=== PATIENT | male | born 1950 | race American Indian/Alaskan Native ===

== ENCOUNTER 2021-12-14 08:44 | Outpatient (CLI) | payer MEDICARE ==
--- NOTE | 2021-12-14 10:45 | Cat Scan Report ---
CT ABDOMEN AND PELVIS WITHOUT CONTRAST INDICATION / CLINICAL INFORMATION: MALIGNANT NEOPLASM OF PROSTATE. TECHNIQUE: Axial CT images were obtained through the abdomen and pelvis without IV contrast. All CT scans at this location are performed using CT dose reduction for ALARA by means of automated exposure control. COMPARISON: None available. FINDINGS: LOWER CHEST: No acute abnormality LIVER: No significant abnormality. GALLBLADDER: No significant abnormality. BILE DUCTS: No significant abnormality. PANCREAS: No significant abnormality. SPLEEN: No significant abnormality. ADRENALS: No significant abnormality. RIGHT KIDNEY / URETER: There is a small nonobstructing stone in the lower pole LEFT KIDNEY / URETER: No significant abnormality. STOMACH / SMALL BOWEL: No significant abnormality. COLON: No significant abnormality. APPENDIX: No significant abnormality. PERITONEUM: No free fluid. No free air. No fluid collection. LYMPH NODES: No significant adenopathy. AORTA / ARTERIES: Mild atherosclerotic calcification without acute abnormality. IVC / VEINS: No significant abnormality. URINARY BLADDER: No significant abnormality. REPRODUCTIVE ORGANS: No significant abnormality. ADDITIONAL FINDINGS: None. SKELETAL SYSTEM: No acute abnormality. There are healed/healing left lower rib fractures. Degenerativ e changes are noted in the spine. IMPRESSION: 1. No acute abnormality. No metastatic disease is identified. Signer Name: Dixon Mtz MD Signed: 12/14/2021 10:40 AM Workstation Name: [id number]
--- NOTE | 2021-12-14 15:40 | Nuclear Medicine Report ---
NUCLEAR MEDICINE BONE SCAN, WHOLE BODY INDICATION / CLINICAL INFORMATION: C61 PROSTATE CA. TECHNIQUE: 26 mCi of Tc-99m MDP were injected IV. Images were obtained of the whole body. COMPARISON: CT scan dated 12/14/2021 FINDINGS: BONES: There is focal uptake noted in the expected location of the mid clavicle possibly left first r ib which is nonspecific. There is uptake noted in the posterior aspect of the left ninth and 10th ribs. These correspond to si claudia of prior fractures. JOINTS: There is prominent uptake noted in the shoulders bilaterally likely related to degenerative c hange. There is uptake noted in the right kidney which is also likely degenerative SOFT TISSUES: No significant abnormality. KIDNEYS: No significant abnormality. ADDITIONAL FINDINGS: None. IMPRESSION: 1. Focal uptake in the mid left clavicle or left first rib is nonspecific. Conventional radiographs r ecommended to further evaluate. 2. Uptake in the shoulders and right knee is likely degenerative. 3. There is uptake in the posterior left ninth and 10th ribs corresponding to healing or healed fract ures. Signer Name: Dxion Mtz MD Signed: 12/14/2021 3:36 PM Workstation Name: [id number]
== END 2021-12-14 08:45 | disposition home or self-care (01) ==
LOC: NM 08:44
PROVIDERS: ATTEND Urology
DX: C61 Malignant neoplasm of prostate (principal); N20.0 Calculus of kidney; I70.0 Atherosclerosis of aorta; M47.816 Spondylosis without myelopathy or radiculopathy, lumbar region
CPT/HCPCS: 74176; 78306; A9503

== ENCOUNTER 2022-02-19 06:46 | Observation (INO) | payer MEDICARE ==
[2022-02-06 14:05] LABS: Hematocrit 37.8 % (35.5-45.6); Hemoglobin 12.7 gm/dl (11.8-15.2); Mean Corpuscular HGB Conc 34 % (32-34); Mean Corpuscular Volume 95 fl (84-94); Platelet Count 196 K/mm3 (140-440); Red Blood Count 3.98 M/mm3 (3.65-5.03); Red Cell Distribution Width 13.7 % (13.2-15.2)
[2022-02-06 14:27] LABS: Alanine Aminotransferase 15 units/L (7-56); Blood Urea Nitrogen 17 mg/dL (9-20); Calcium 9.1 mg/dL (8.4-10.2); Hemolysis Index 10
[2022-02-06 14:30] LABS: BUN/Creatinine Ratio 34
--- NOTE | 2022-02-06 14:33 | Anesthesia Consultation ---
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
[~2022-02-19 06:46] MED LIST: CELECOXIB 200 MG CAP PO NR; GABAPENTIN 300 MG CAP PO NR; LACTATED RINGERS 1,000 ML IV SCH; MIDAZOLAM 2 MG/2 ML INJ IV NR
[2022-02-19] MEDS ORDERED: fentaNYL 100 MCG/2 ML INJ IV SCH (07:00)
[2022-02-19] MEDS ORDERED: ACETAMINOPHEN 325 MG TAB PO SCH (07:00)
[2022-02-19] MEDS ORDERED: MAGNESIUM OXIDE 400 MG TAB PO SCH (07:00)
[2022-02-19] MEDS ORDERED: ceFAZolin/Water 2 GM/20 ML 2 GM/20 ML SYRINGE IV ONE (08:11)
[2022-02-19] MEDS ORDERED: dexAMETHasone 4 MG/ML VIAL ONE (08:19)
[2022-02-19] MEDS ORDERED: cloNIDine/PF 1,000 MCG/10 ML VIAL EP ONE (08:19)
[2022-02-19] MEDS ORDERED: BUPIVACAINE-EPINEPHRINE/PF 0.25%-1:200,000 (30 ML) VIAL INFILTRATI ONE (08:19)
[2022-02-19] MEDS ORDERED: LIDOCAINE (1%) 10 MG/1 ML VIAL 20 ML MDV ONE (08:19)
--- NOTE | 2022-02-19 09:08 | Anesthesia Day of Surgery ---
Anesthesia Day of Surgery - Day of Surgery Patient Examined: Yes Patient H&P Reviewed: Yes Patient is NPO: Yes
[2022-02-19] MEDS ORDERED: ceFAZolin/Water 2 GM/20 ML 2 GM/20 ML SYRINGE IV NR (09:14)
[2022-02-19] MEDS ORDERED: HYDROmorphone 1 MG/1 ML INJ IV PRN (09:23)
[2022-02-19] MEDS ORDERED: fentaNYL 100 MCG/2 ML INJ ONE (09:31)
[2022-02-19] MEDS ORDERED: propofoL 200 MG/20 ML VIAL IV ONE (09:31)
[2022-02-19] MEDS ORDERED: ROCURONIUM 50 MG/5 ML INJ IV ONE (09:31)
[2022-02-19] MEDS ORDERED: KETAMINE/STERILE WATER 50 MG/ML SYRINGE ONE (09:31)
[2022-02-19] MEDS ORDERED: LIDOCAINE MPF (2%) 20 MG/1 ML VIAL 5 ML ONE (09:31)
[2022-02-19] MEDS ORDERED: SODIUM CHLORIDE P/F VIAL 10 ML 10 ML ONE ×2 (09:32→11:37)
[2022-02-19] MEDS ORDERED: THROMBIN (RECOMBINANT) 5,000 UNIT VIAL TP ONE ×2 (10:32→10:54)
[2022-02-19] MEDS ORDERED: CALCIUM CHLORIDE 1,000 MG/10 ML SYRINGE IV ONE ×2 (10:32→10:53)
[2022-02-19] MEDS ORDERED: SODIUM CHLORIDE 0.9% IRRIG SOLN 2000 ML IR ONE (10:52)
[2022-02-19] MEDS ORDERED: ANTICOAGULANT SOD CITRATE SOLUTION MC ONE (10:52)
[2022-02-19] MEDS ORDERED: WATER FOR IRRIG STERILE 1,500 ML BOTTLE IR ONE (10:53)
[2022-02-19] MEDS ORDERED: PHENYLEPHRINE/NS 1,000 MCG/10 ML SYRINGE (OR USE) IV ONE (11:37)
[2022-02-19] MEDS ORDERED: KETOROLAC 30 MG/1 ML INJ ONE (11:37)
[2022-02-19] MEDS ORDERED: ONDANSETRON 4 MG/2 ML INJ ONE (11:37)
[2022-02-19] MEDS ORDERED: dexAMETHasone 20 MG/5 ML VIAL ONE (11:38)
[2022-02-19] MEDS ORDERED: ePHEDrine SULFATE 50 MG/1 ML INJ ONE (11:42)
[2022-02-19] MEDS ORDERED: GLYCOPYRROLATE 0.4 MG/2 ML INJ ONE ×2 (12:17→12:41)
[2022-02-19] MEDS ORDERED: NEOSTIGMINE 10MG/10 ML INJ MDV ONE (12:17)
--- NOTE | 2022-02-19 12:24 | Short Stay Summary ---
Short Stay Documentation Date of service: 02/19/22 - History H&P: obtained from office - Allergies and Medications Current Medications: Allergies No Known Allergies Allergy (Verified 02/06/22 15:19) Home Medications Medication Instructions Recorded Confirmed Last Taken Type Aspirin [Vazalore] 81 mg PO DAILY 02/02/22 02/19/22 02/05/22 History AtorvaSTATin 10 mg PO DAILY 02/02/22 02/02/22 02/19/22 05:45 History Multivit-Min/FA/Lycopen/Lutein 1 each PO DAILY 02/02/22 02/19/22 02/15/22 History [Centrum Silver Men Tablet] amLODIPine [Norvasc] 5 mg PO DAILY 02/02/22 02/02/22 02/19/22 05:45 History Active Medications Acetaminophen (Acetaminophen 325 Mg Tab) 650 mg PO ONCE@0700 [facility] Stop: 02/19/22 21:00 Last Admin: 02/19/22 08:20 Dose: 650 mg Celecoxib (Celecoxib 200 Mg Cap) 200 mg PO PREOP NR Stop: 02/19/22 21:00 Last Admin: 02/19/22 08:20 Dose: 200 mg Fentanyl (Fentanyl 100 Mcg/2 Ml Inj) 100 mcg IV ONCE@0700 FREDRICK Stop: 02/19/22 18:00 Last Admin: 02/19/22 08:39 Dose: 50 mcg Gabapentin (Gabapentin 300 Mg Cap) 300 mg PO PREOP NR Stop: 02/19/22 21:00 Last Admin: 02/19/22 08:20 Dose: 300 mg Hydromorphone HCl (Hydromorphone 1 Mg/1 Ml Inj) 0.5 mg IV Q10MIN PRN PRN Reason: Pain , Severe (7-10) Stop: 02/19/22 20:00 Lactated Ringer's (Lactated Ringers) 1,000 mls @ 125 mls/hr IV DIRECT FREDRICK Last Admin: 02/19/22 08:30 Dose: 125 mls/hr Cefazolin Sodium (Ancef/Sterile Water 2 Gm/20 Ml) 2 gm in 20 mls @ 80 mls/hr IV PREOP NR; Protocol Stop: 02/19/22 15:00 Magnesium Oxide (Magnesium Oxide 400 Mg Tab) 400 mg PO ONCE@0700 FREDRICK Stop: 02/19/22 21:00 Last Admin: 02/19/22 08:20 Dose: 400 mg Methocarbamol (Methocarbamol 750 Mg Tab) 1,500 mg PO ONCE@0700 FREDRICK Stop: 02/19/22 21:00 Last Admin: 02/19/22 08:20 Dose: 1,500 mg Midazolam HCl (Midazolam 2 Mg/2 Ml Inj) 2 mg IV PREOP NR Stop: 02/19/22 23:59 Last Admin: 02/19/22 08:38 Dose: 2 mg - Brief post op/procedure progress note Date of procedure: 02/19/22 Pre-op diagnosis: prostate cancer Post-op diagnosis: same Procedure: robotic prostatectomy Anesthesia: GETA Surgeon: KARTIK MALDONADO Estimated blood loss: other (200cc) Pathology: none (prostate) Specimen disposition: to lab Condition: stable - Hospital course Hospital course: pt has norco,bactrim,post op info at home no issues tommy--dc done patel clear - Disposition Condition at discharge: Stable Disposition: 30 STILL A PATIENT Short Stay Discharge Plan Follow up with: AURELIA LOZANO MD [Primary Care Provider] - 7 Days
[2022-02-19] MEDS ORDERED: LACTATED RINGERS 1,000 ML ONE (12:41)
[2022-02-19] MEDS ORDERED: SODIUM CHLORIDE 0.9% 1000 ML 1,000 ML IV SCH (13:00)
[2022-02-19] MEDS ORDERED: HYDROcodone/ACETAMINOPHEN 5-325 MG TAB PO PRN (13:00)
[2022-02-19] MEDS ORDERED: ACETAMINOPHEN 325 MG TAB PO PRN (13:00)
[2022-02-19] MEDS ORDERED: NALOXONE 0.4 MG/1 ML INJ IV PRN (14:00)
[2022-02-19] MEDS ORDERED: MORPHINE 4 MG/1 ML INJ IV PRN (14:00)
[2022-02-19] MEDS ORDERED: ONDANSETRON 4 MG/2 ML INJ IV PRN (14:00)
--- NOTE | 2022-02-19 14:13 | Post Anesthesia Evaluation ---
- Post Anesthesia Evaluation Patient Participated: Yes Airway Patent: Yes Stable Respiratory Function: Yes Nausea/Vomiting: No Temp > 96.8F: Yes Pain Manageable: Yes Adequeate Hydration: Yes Anesthesia Complications: No
--- NOTE | 2022-02-19 14:49 | Operative Report ---
DATE OF SURGERY: 02/19/2022 PREOPERATIVE DIAGNOSIS: Prostate cancer. POSTOPERATIVE DIAGNOSIS: Prostate cancer. PROCEDURES: Robotic-assisted laparoscopic prostatectomy, bladder neck suspension. SURGEON: Jareth Cruz MD PHOTOVOLTAIC TECHNICIAN: Estela Mojica. ANESTHESIA: General. ESTIMATED BLOOD LOSS: 200 mL. FLUIDS: Crystalloid. COMPLICATIONS: No complications. INDICATIONS: This patient is a 71-year-old gentleman, who was seen in the office for a PSA of 7. He underwent transrectal ultrasound and biopsies of his prostate, was found to have [place] (3+4) adenocarcinoma of the prostate. CT bone scan was unremarkable except for some degenerative changes in the bone. Discussed options with the patient and his daughter. They agreed to proceed with surgical intervention. Risks, benefits, complications were explained. The patient is aware . DESCRIPTION OF PROCEDURE: The patient was taken to the operative suite, placed in a supine position. After adequate general anesthesia, he was placed in a modified dorsal lithotomy position, prepped and draped in a sterile fashion. A 1 cm supraumbilical incision was made with the Bovie. Towel clips were placed. Veress needle was used for drop test, which was negative. Opening pressure was 1 mL of water. Insufflation to 15 mL of water was performed. The Hammer catheter was placed as well. A 0-degree lens was placed into the abdomen under direct vision. No signs of metastasis or injury could be appreciated. The patient was placed in exaggerated dorsal lithotomy position. A 15 cm cephalad to pubic symphysis was marked, 9 cm lateral and additional 9 cm lateral was marked. The robotic ports were placed under direct vision; 8 mm ports on the left; 8 mm port as well as a 10 mm and a 5 mm helper port was placed on the right side. Into the console, second arch could be appreciated. It was scored with the Bovie and sharp dissection was used to identify and transect vas deferens. Dissection was taken to the apex of the prostate. Seminal vesicles and vas deferens were dissected out. Attention was then taken to the anterior abdominal wall laterally. Lateral umbilical ligament was scored and then across the midline to allow the bladder flap. Pubic rami could be appreciated bilaterally. Dorsal vein complex was isolated. Endopelvic fascia was opened. Dorsal vein complex was controlled and dissection was taken to the bladder neck. Anterior bladder neck was transected ____. A Hammer was deflated and pulled anteriorly. Posterior bladder neck was dissected as well as exposing the lateral pedicles. The patient had a fair amount of adipose tissue and could not see the neurovascular bundle. Using a 60 mm vascular stapler, lateral pedicles were controlled bilaterally without difficulty. Dorsal vein complex was controlled with a 60 mm vascular stapler as well. Dissection posterior to the apex of the prostate was performed without difficulty. Anterior urethra was transected distal to the prostate. The Hammer was pulled back. A complete transection of the distal urethra was performed and then the prostate was dissected and removed and placed in the EndoCatch bag. Copious irrigation was performed. Adequate hemostasis was achieved. V-Loc stitch was placed in the posterior aspect of the bladder neck. Reconstruction was not needed due to the small diameter of the bladder neck. Stem cell graft was placed along the area of the neurovascular bundle. V-Loc stitch was placed in the corresponding aspect of the urethra and incorporated the stem cell graft. Running stitch was placed bilaterally. A new 18-[place] Hammer catheter was placed without difficulty. V-Loc suture was then used to do a bladder neck suspension attaching stitch to the posterior aspect of the pubic rami bilaterally. [place] were removed. Copious irrigation was performed. Adequate hemostasis was achieved. Platelet rich plasma and platelet poor plasma was injected around the urethra as well as a platelet membrane. [place]-Rose drain was then brought out to the left-sided port and tied into position with 2-0 silk in interrupted fashion. The robotic cart was undocked. The patient was placed in a supine position. The supraumbilical incision was extended slightly to allow removal of the prostate. Rectus fascia was closed with 0 Vicryl in a [id number] fashion. Skin was closed with a 3-0 chromic in interrupted fashion and the Hammer catheter sideport was folded over and tied with a 0 silk in interrupted fashion. The patient tolerated the procedure well and was extubated and taken to recovery room. He will be observed overnight. Estela Mojica was present at the bedside throughout the procedure to assist with dissection. TID: [id number] RECEIPT: [id number] JAYLEN/JORGE/CEM
[2022-02-19] MEDS: ceFAZolin/NS 1 GM/50 ML 1 GM/50 ML BAG IV SCH (16:27)
--- NOTE | 2022-02-19 18:29 | Consultation ---
History of Present Illness - Reason for Consult Consult date: 02/19/22 Medical management Requesting physician: KARTIK MALDONADO - History of Present Illness S/p robotic prostatectomy Postop patient doing well Pain is about 4 on a scale of 1-10 Medications and Allergies Allergies Allergy/AdvReac Type Severity Reaction Status Date / Time No Known Allergies Allergy Verified 02/19/22 17:28 Home Medications Medication Instructions Recorded Confirmed Last Taken Type Aspirin [Vazalore] 81 mg PO DAILY 02/02/22 02/19/22 02/05/22 History AtorvaSTATin 10 mg PO DAILY 02/02/22 02/02/22 02/19/22 05:45 History Multivit-Min/FA/Lycopen/Lutein 1 each PO DAILY 02/02/22 02/19/22 02/15/22 History [Centrum Silver Men Tablet] amLODIPine [Norvasc] 5 mg PO DAILY 02/02/22 02/02/22 02/19/22 05:45 History Active Meds: Active Medications Acetaminophen (Acetaminophen 325 Mg Tab) 650 mg PO ONCE@0700 [facility] Stop: 02/19/22 21:00 Last Admin: 02/19/22 08:20 Dose: 650 mg Acetaminophen (Acetaminophen 325 Mg Tab) 650 mg PO Q4H PRN PRN Reason: Pain, Mild (1-3)/Fever > 100.5 Hydrocodone Bitart/Acetaminophen (Hydrocodone/Acetaminophen 5-325 Mg Tab) 2 each PO Q4H PRN PRN Reason: Pain, Moderate (4-6) Amlodipine Besylate (Amlodipine 5 Mg Tab) 5 mg PO DAILY [facility] Atorvastatin Calcium (Atorvastatin 10 Mg Tab) 10 mg PO QHS [facility] Celecoxib (Celecoxib 200 Mg Cap) 200 mg PO PREOP NR Stop: 02/19/22 21:00 Last Admin: 02/19/22 08:20 Dose: 200 mg Gabapentin (Gabapentin 300 Mg Cap) 300 mg PO PREOP NR Stop: 02/19/22 21:00 Last Admin: 02/19/22 08:20 Dose: 300 mg Hydromorphone HCl (Hydromorphone 1 Mg/1 Ml Inj) 0.5 mg IV Q10MIN PRN PRN Reason: Pain , Severe (7-10) Stop: 02/19/22 20:00 Sodium Chloride (Nacl 0.9% 1000 Ml) 1,000 mls @ 100 mls/hr IV DIRECT FREDRICK Cefazolin Sodium (Ancef/Ns 1 Gm/50 Ml) 1 gm in 50 mls @ 100 mls/hr IV Q8H FREDRICK; Protocol Stop: 02/20/22 00:29 Last Admin: 02/19/22 16:27 Dose: 100 mls/hr Magnesium Oxide (Magnesium Oxide 400 Mg Tab) 400 mg PO ONCE@0700 FREDRICK Stop: 02/19/22 21:00 Last Admin: 02/19/22 08:20 Dose: 400 mg Methocarbamol (Methocarbamol 750 Mg Tab) 1,500 mg PO ONCE@0700 FREDRICK Stop: 02/19/22 21:00 Last Admin: 02/19/22 08:20 Dose: 1,500 mg Midazolam HCl (Midazolam 2 Mg/2 Ml Inj) 2 mg IV PREOP NR Stop: 02/19/22 23:59 Last Admin: 02/19/22 08:38 Dose: 2 mg Morphine Sulfate (Morphine 4 Mg/1 Ml Inj) 4 mg IV Q4H PRN PRN Reason: Pain , Severe (7-10) Naloxone HCl (Naloxone 0.4 Mg/1 Ml Inj) 0.1 mg IV Q2MIN PRN PRN Reason: Res Rate </= 8 or 02 SAT < 92% Ondansetron HCl (Ondansetron 4 Mg/2 Ml Inj) 4 mg IV Q8H PRN PRN Reason: Nausea And Vomiting Exam - Constitutional Vitals: Temp Pulse Resp BP Pulse Ox 97.6 F 76 16 108/68 95 02/19/22 16:44 02/19/22 16:44 02/19/22 17:33 02/19/22 16:44 02/19/22 17:33 General appearance: Present: no acute distress, well-nourished - EENT Eyes: Present: PERRL ENT: hearing intact, clear oral mucosa - Neck Neck: Present: supple, normal ROM - Respiratory Respiratory effort: normal Respiratory: bilateral: CTA - Cardiovascular Heart rate: 78 Rhythm: regular Heart Sounds: Present: S1 & S2. Absent: rub, click - Extremities Extremities: pulses symmetrical, No edema Peripheral Pulses: within normal limits - Abdominal General gastrointestinal: Present: soft, non-tender, non-distended, normal bowel sounds Male genitourinary: Present: normal - Integumentary Integumentary: Present: clear, warm, dry - Musculoskeletal Musculoskeletal: gait normal, strength equal bilaterally - Psychiatric Psychiatric: appropriate mood/affect, intact judgment & insight - Neurologic Neurologic: CNII-XII intact, moves all extremities Results - Labs CBC & Chem 7: 02/06/22 13:45 02/06/22 13:45 Assessment and Plan - Patient Problems (1) S/P prostatectomy Current Visit: Yes Status: Acute Plan to address problem: . Postop patient doing well (2) Hypertension Current Visit: Yes Status: Chronic Qualifiers: Hypertension type: primary hypertension Qualified Code(s): I10 - Essential (primary) hypertension Plan to address problem: Continue amlodipine and adjust medications as necessary (3) Hyperlipidemia Current Visit: Yes Status: Chronic Plan to address problem: Continue statins (4) DVT prophylaxis Current Visit: Yes Status: Acute Plan to address problem: On SCDs and GI prophylaxis
[2022-02-20] MEDS: ceFAZolin/NS 1 GM/50 ML 1 GM/50 ML BAG IV SCH (00:43)
[2022-02-20] MEDS ORDERED: NON-FORMULARY EACH (Atorvastatin 10 MG) PO SCH (10:00)
[2022-02-20] MEDS ORDERED: amLODIPine 5 MG TAB PO SCH (10:00)
[2022-02-20 10:04] VITALS: BP 119/76
--- NOTE | 2022-02-20 11:42 | Progress Note ---
Assessment and Plan Assessment and plan: S/p prostatectomy Hypertension Hyperlipidemia 02/20/2022. We will continue the patient's home medications and pain control. Supportive care. Discharge per urology History Interval history: No new issues overnight. Hospitalist Physical - Constitutional Vitals: Temp Pulse Resp BP Pulse Ox 99.0 F 84 20 119/76 95 02/20/22 05:20 02/20/22 10:02 02/20/22 05:20 02/20/22 10:02 02/20/22 05:20 General appearance: Present: no acute distress, well-nourished - EENT Eyes: Present: PERRL, EOM intact ENT: hearing intact, clear oral mucosa, dentition normal - Neck Neck: Present: supple, normal ROM - Respiratory Respiratory effort: normal Respiratory: bilateral: CTA - Cardiovascular Rhythm: regular Heart Sounds: Present: S1 & S2. Absent: gallop, rub - Extremities Extremities: no ischemia, No edema, Full ROM - Abdominal General gastrointestinal: soft, non-tender, non-distended, normal bowel sounds - Integumentary Integumentary: Present: clear, warm, dry - Neurologic Neurologic: CNII-XII intact, moves all extremities Results - Labs CBC & Chem 7: 02/06/22 13:45 02/06/22 13:45 Labs: Laboratory Last Values WBC 8.5 K/mm3 (4.5-11.0) 02/06/22 13:45 RBC 3.98 M/mm3 (3.65-5.03) 02/06/22 13:45 Hgb 12.7 gm/dl (11.8-15.2) 02/06/22 13:45 Hct 37.8 % (35.5-45.6) 02/06/22 13:45 MCV 95 fl (84-94) H 02/06/22 13:45 MCH 32 pg (28-32) 02/06/22 13:45 MCHC 34 % (32-34) 02/06/22 13:45 RDW 13.7 % (13.2-15.2) 02/06/22 13:45 Plt Count 196 K/mm3 (140-440) 02/06/22 13:45 Sodium 135 mmol/L (137-145) L 02/06/22 13:45 Potassium 3.9 mmol/L (3.6-5.0) 02/06/22 13:45 Chloride 99.5 mmol/L (98-107) 02/06/22 13:45 Carbon Dioxide 23 mmol/L (22-30) 02/06/22 13:45 Anion Gap 16 mmol/L 02/06/22 13:45 BUN 17 mg/dL (9-20) 02/06/22 13:45 Creatinine 0.5 mg/dL (0.8-1.3) L 02/06/22 13:45 Estimated GFR > 60 ml/min 02/06/22 13:45 BUN/Creatinine Ratio 34 % 02/06/22 13:45 Glucose 102 mg/dL (75-100) H 02/06/22 13:45 POC Glucose 88 mg/dL (70-105) 02/19/22 07:49 Calcium 9.1 mg/dL (8.4-10.2) 02/06/22 13:45 Total Bilirubin 1.10 mg/dL (0.1-1.2) 02/06/22 13:45 AST 30 units/L (5-40) 02/06/22 13:45 ALT 15 units/L (7-56) 02/06/22 13:45 Alkaline Phosphatase 102 units/L (35-129) 02/06/22 13:45 Total Protein 7.1 g/dL (6.3-8.2) 02/06/22 13:45 Albumin 4.0 g/dL (3.9-5) 02/06/22 13:45 Albumin/Globulin Ratio 1.3 % 02/06/22 13:45 SARS-CoV-2 (PCR) Negative (Negative) 02/06/22 13:40 Blood Type O POSITIVE 02/19/22 07:45 Antibody Screen Negative 02/19/22 07:45 Hammer/IV: Voiding Method Indwelling Catheter Active Medications - Current Medications Current Medications: Generic Name Dose Route Start Last Admin Trade Name Freq PRN Reason Stop Dose Admin Acetaminophen 650 mg 02/19/22 13:00 Acetaminophen 325 Mg Tab PO Q4H PRN Pain, Mild (1-3)/Fever > 100.5 Hydrocodone Bitart/Acetaminophen 2 each 02/19/22 13:00 Hydrocodone/Acetaminophen 5-325 Mg Tab PO Q4H PRN Pain, Moderate (4-6) Amlodipine Besylate 5 mg 02/20/22 10:00 02/20/22 10:02 Amlodipine 5 Mg Tab PO 5 mg DAILY FREDRICK Administration Atorvastatin Calcium 10 mg 02/20/22 22:00 Atorvastatin 10 Mg Tab PO QHS FREDRICK Sodium Chloride 1,000 mls @ 100 mls/hr 02/19/22 13:00 02/20/22 06:30 Nacl 0.9% 1000 Ml IV 100 mls/hr DIRECT FREDRICK Administration Morphine Sulfate 4 mg 02/19/22 14:00 02/20/22 02:55 Morphine 4 Mg/1 Ml Inj IV 4 mg Q4H PRN Administration Pain , Severe (7-10) Naloxone HCl 0.1 mg 02/19/22 14:00 Naloxone 0.4 Mg/1 Ml Inj IV Q2MIN PRN Res Rate </= 8 or 02 SAT < 92% Ondansetron HCl 4 mg 02/19/22 14:00 Ondansetron 4 Mg/2 Ml Inj IV Q8H PRN Nausea And Vomiting
--- NOTE | 2022-02-20 14:18 | Post Anesthesia Evaluation ---
- Post Anesthesia Evaluation Patient Participated: Yes Airway Patent: Yes Stable Respiratory Function: Yes Nausea/Vomiting: No Temp > 96.8F: Yes Pain Manageable: Yes Adequeate Hydration: Yes Anesthesia Complications: No Block Receding Appropriately: Yes Patient on Ventilator: No Other Comments: Being dyscharged by the surgeon
== END 2022-02-20 12:32 | disposition home or self-care (01) ==
LOC: OR 06:46 → 3A 12:25
PROVIDERS: ADMIT Urology; ATTEND Urology
DX: C61 Malignant neoplasm of prostate (principal); Z20.822 Contact with and (suspected) exposure to COVID-19; I10 Essential (primary) hypertension; E78.5 Hyperlipidemia, unspecified; Z79.82 Long term (current) use of aspirin; Z79.899 Other long term (current) drug therapy
CPT/HCPCS: 36415; 55866; 64488; 80053; 82962; 85027; 86850; 86900; 86901; 88309; 88344; 96365; 96366; 96375; C1769; G0378; J0690; J0735; J1100; J1815; J1885; J2250; J2270; J2370; J2405; J2704; J2710; J3010; J3490; J7030; J7120; Q4140; U0003; 64450; J7121